=== PATIENT | male | born 1965 | race Caucasian/White ===

== ENCOUNTER 2018-02-25 10:46 | Emergency (ER) | payer OTHER ==
[~2018-02-25] VITALS: Ht 175.3 cm; Wt 109.1 kg
[~2018-02-25 10:46] MED LIST: ATOR10TA84 PO; BUPR-93 PO; CITA-106 PO; LISI-618 PO; METF1000 PO; OMEP20 PO; PIOG15TA6 PO; QUET400T PO; [UNRECOGNIZED DRUG - CODE] PO
[2018-02-25 11:54] LABS: ANION GAP 11 mmol/L (8-16); CARBON DIOXIDE 28 mmol/L (22-29); CHLORIDE 101 mmol/L (98-107); CREATININE 0.92 mg/dL (0.60-1.30); GLOMERULAR FILTR. RATE CALC > 60 mL/min (>60); GLUCOSE,RANDOM 122 mg/dL (70-110); POTASSIUM 4.1 mmol/L (3.5-5.1); SODIUM SERUM 140 mmol/L (136-145); UREA NITROGEN, BLOOD 12 mg/dL (7-18)
[2018-02-25 12:00] LABS: ALANINE AMINOTRANSFERASE 76 U/L (12-78); ALBUMIN 4.3 g/dL (3.4-5.0); ALKALINE PHOSPHATASE 86 U/L (46-116); ASPARTATE AMINOTRANSFERASE 39 U/L (15-37); BILIRUBIN,TOTAL 0.3 mg/dL (0.1-1.0); TOTAL PROTEIN, SERUM 8.2 g/dL (6.4-8.2)
[2018-02-25 12:10] LABS: LYMPHOCYTES # (AUTO) 1.9 K/uL (1.0-4.8); MONOCYTES # (AUTO) 0.4 K/uL (0.1-1.0); RED CELL DISTRIBUTION WIDTH 14.1 % (11.5-14.5)
[2018-02-25 12:24] LABS: BASOPHILS % (AUTO) 0.8 % (0.0-2.0); EOSINOPHILS % (AUTO) 1.1 % (1.0-6.0); HEMATOCRIT 47.4 % (41-53); HEMOGLOBIN 16.2 g/dL (13.5-17.5); LYMPHOCYTES % (AUTO) 27.3 % (22.0-44.0); MEAN CORPUSCULAR HEMOGLOBIN 29.8 pg (26.0-34.0); MEAN CORPUSCULAR HGB CONC 34.3 G/dL (31.0-37.0); MEAN CORPUSCULAR VOLUME 87 fL (80-100); NEUTROPHILS # (AUTO) 4.4 K/uL (1.8-7.7); NEUTROPHILS % (AUTO) 64.8 % (40.0-70.0); PLATELET COUNT (AUTO) 234 K/uL (150-450); RED BLOOD CELL COUNT(AUTO) 5.45 MIL/uL (4.50-5.90)
[2018-02-25 12:42] LABS: AMPHET/METH SCREEN,URINE NEGATIVE (NEGATIVE); BARBITURATE SCREEN, URINE NEGATIVE (NEGATIVE); BENZODIAZEPINES SCREEN,URINE NEGATIVE (NEGATIVE); CANNABINOID SCREEN,URINE POSITIVE (NEGATIVE); COCAINE SCREEN,URINE NEGATIVE (NEGATIVE); METHADONE SCREEN, URINE NEGATIVE (NEGATIVE); OPIATE SCREEN,URINE NEGATIVE (NEGATIVE)
[2018-02-25 12:45] LABS: PHENCYCLIDINE SCREEN,URINE NEGATIVE (NEGATIVE)
[2018-02-25] MEDS ORDERED: LORazepam 1 MG TABLET PO ONE (13:30)
[2018-02-25 14:00] VITALS: BP 142/92
== END 2018-02-25 14:36 | disposition home or self-care (01) ==
LOC: EMS 10:47
DX: F32.9 Major depressive disorder, single episode, unspecified (principal); F10.229 Alcohol dependence with intoxication, unspecified; K70.30 Alcoholic cirrhosis of liver without ascites; R07.89 Other chest pain; I10 Essential (primary) hypertension; E11.9 Type 2 diabetes mellitus without complications; K21.9 Gastro-esophageal reflux disease without esophagitis; F12.90 Cannabis use, unspecified, uncomplicated; F17.210 Nicotine dependence, cigarettes, uncomplicated; Z79.899 Other long term (current) drug therapy
CPT/HCPCS: 36415; 80053; 80307; 84484; 85025; 93005; 99285; 99406; G0480

== ENCOUNTER 2018-05-12 10:11 | Emergency (ER) | payer OTHER ==
[~2018-05-12] VITALS: Ht 172.7 cm; Wt 104.5 kg
[~2018-05-12 10:11] MED LIST changes: -BUPR-93 PO; -CITA-106 PO; -PIOG15TA6 PO; -QUET400T PO; -[UNRECOGNIZED DRUG - CODE] PO
[2018-05-12 10:44] LABS: GLUCOSE,POINT OF CARE 186 MG/DL (70-110)
[2018-05-12] MEDS ORDERED: LORazepam 2 MG TABLET PO ONE (11:30)
[2018-05-12 11:49] LABS: BASOPHILS % (AUTO) 0.6 % (0.0-2.0); EOSINOPHILS % (AUTO) 1.1 % (1.0-6.0); HEMATOCRIT 47.2 % (41-53); HEMOGLOBIN 16.2 g/dL (13.5-17.5); LYMPHOCYTES # (AUTO) 2.1 K/uL (1.0-4.8); LYMPHOCYTES % (AUTO) 29.2 % (22.0-44.0); MEAN CORPUSCULAR HGB CONC 34.3 G/dL (31.0-37.0); MEAN CORPUSCULAR VOLUME 88 fL (80-100); MONOCYTES # (AUTO) 0.4 K/uL (0.1-1.0); MONOCYTES % (AUTO) 5.4 % (2.0-9.0); NEUTROPHILS # (AUTO) 4.6 K/uL (1.8-7.7); NEUTROPHILS % (AUTO) 63.7 % (40.0-70.0); PLATELET COUNT (AUTO) 214 K/uL (150-450); RED BLOOD CELL COUNT(AUTO) 5.39 MIL/uL (4.50-5.90); RED CELL DISTRIBUTION WIDTH 13.3 % (11.5-14.5)
[2018-05-12 12:08] LABS: ANION GAP 16 mmol/L (8-16); CALCIUM, TOTAL 9.6 mg/dL (8.8-10.5); CARBON DIOXIDE 24 mmol/L (22-29); CHLORIDE 98 mmol/L (98-107); CREATININE 0.99 mg/dL (0.60-1.30); GLOMERULAR FILTR. RATE CALC > 60 mL/min (>60); GLUCOSE,RANDOM 135 mg/dL (70-110); SODIUM SERUM 138 mmol/L (136-145); UREA NITROGEN, BLOOD 10 mg/dL (7-18)
[2018-05-12 12:15] LABS: ALANINE AMINOTRANSFERASE 69 U/L (12-78); ALBUMIN 4.7 g/dL (3.4-5.0); ALKALINE PHOSPHATASE 87 U/L (46-116); ASPARTATE AMINOTRANSFERASE 46 U/L (15-37); BILIRUBIN,TOTAL 0.5 mg/dL (0.1-1.0); TOTAL PROTEIN, SERUM 8.4 g/dL (6.4-8.2)
[2018-05-12 12:22] LABS: AMPHET/METH SCREEN,URINE POSITIVE (NEGATIVE); BARBITURATE SCREEN, URINE NEGATIVE (NEGATIVE); BENZODIAZEPINES SCREEN,URINE NEGATIVE (NEGATIVE); CANNABINOID SCREEN,URINE POSITIVE (NEGATIVE); COCAINE SCREEN,URINE NEGATIVE (NEGATIVE); METHADONE SCREEN, URINE NEGATIVE (NEGATIVE); OPIATE SCREEN,URINE NEGATIVE (NEGATIVE); PHENCYCLIDINE SCREEN,URINE NEGATIVE (NEGATIVE)
[2018-05-12 12:59] LABS: GLUCOSE,POINT OF CARE 225 MG/DL (70-110)
[2018-05-12 16:13] LABS: GLUCOSE,POINT OF CARE 164 MG/DL (70-110)
[2018-05-12 17:49] LABS: GLUCOSE,POINT OF CARE 145 MG/DL (70-110)
[2018-05-12] MEDS ORDERED: CloNIDine HCL 0.2 MG TABLET PO ONE (18:00)
[2018-05-12 22:30] VITALS: BP 109/67
== END 2018-05-12 23:36 ==
LOC: EMS 10:22
DX: F32.9 Major depressive disorder, single episode, unspecified (principal); R45.851 Suicidal ideations; I10 Essential (primary) hypertension; E11.9 Type 2 diabetes mellitus without complications; K21.9 Gastro-esophageal reflux disease without esophagitis; F17.210 Nicotine dependence, cigarettes, uncomplicated; F12.90 Cannabis use, unspecified, uncomplicated; Z79.84 Long term (current) use of oral hypoglycemic drugs
CPT/HCPCS: 36415; 80053; 80307; 82962; 85025; 99285; G0480

== ENCOUNTER 2019-08-20 10:11 | Emergency (ER) | payer OTHER ==
[~2019-08-20] VITALS: Ht 182.9 cm; Wt 109.1 kg
[2019-08-20] MEDS ORDERED: HALOPERIDOL LACTATE 5 MG/ML VIAL IM ONE (10:45)
[2019-08-20] MEDS ORDERED: DiphenhydrAMINE HCL 50 MG/ML VIAL IM ONE (10:45)
[2019-08-20] MEDS ORDERED: LORazepam 2 MG/ML VIAL IM ONE (10:45)
[2019-08-20 11:18] LABS: AMPHET/METH SCREEN,URINE NEGATIVE (NEGATIVE); BARBITURATE SCREEN, URINE NEGATIVE (NEGATIVE); BENZODIAZEPINES SCREEN,URINE NEGATIVE (NEGATIVE); CANNABINOID SCREEN,URINE POSITIVE (NEGATIVE); COCAINE SCREEN,URINE NEGATIVE (NEGATIVE); METHADONE SCREEN, URINE NEGATIVE (NEGATIVE); OPIATE SCREEN,URINE NEGATIVE (NEGATIVE)
[2019-08-20 11:28] LABS: PHENCYCLIDINE SCREEN,URINE NEGATIVE (NEGATIVE)
[2019-08-20 11:40] LABS: BASOPHILS % (AUTO) 0.8 % (0.0-2.0); EOSINOPHILS % (AUTO) 3.9 % (1.0-6.0); HEMATOCRIT 45.5 % (41-53); HEMOGLOBIN 15.3 g/dL (13.5-17.5); LYMPHOCYTES # (AUTO) 1.7 K/uL (1.0-4.8); LYMPHOCYTES % (AUTO) 38.1 % (22.0-44.0); MEAN CORPUSCULAR HEMOGLOBIN 30.5 pg (26.0-34.0); MEAN CORPUSCULAR HGB CONC 33.5 G/dL (31.0-37.0); MEAN CORPUSCULAR VOLUME 91 fL (80-100); MONOCYTES # (AUTO) 0.3 K/uL (0.1-1.0); MONOCYTES % (AUTO) 7.3 % (2.0-9.0); NEUTROPHILS # (AUTO) 2.2 K/uL (1.8-7.7); NEUTROPHILS % (AUTO) 49.9 % (40.0-70.0); PLATELET COUNT (AUTO) 227 K/uL (150-450); RED CELL DISTRIBUTION WIDTH 14.3 % (11.5-14.5)
[2019-08-20 11:49] LABS: ANION GAP 10 mmol/L (8-16); CALCIUM, TOTAL 8.3 mg/dL (8.8-10.5); CARBON DIOXIDE 24 mmol/L (22-29); CHLORIDE 105 mmol/L (98-107); GLOMERULAR FILTR. RATE CALC > 60 mL/min (>60); GLUCOSE,RANDOM 153 mg/dL (70-110); POTASSIUM 3.8 mmol/L (3.5-5.1); SODIUM SERUM 139 mmol/L (136-145); UREA NITROGEN, BLOOD 7 mg/dL (7-18)
[2019-08-20 11:53] LABS: ALANINE AMINOTRANSFERASE 50 U/L (12-78); ALBUMIN 4.4 g/dL (3.4-5.0); ALKALINE PHOSPHATASE 77 U/L (46-116); ASPARTATE AMINOTRANSFERASE 32 U/L (15-37); BILIRUBIN,TOTAL 0.2 mg/dL (0.1-1.0); TOTAL PROTEIN, SERUM 7.9 g/dL (6.4-8.2)
[2019-08-20 11:56] LABS: ACETAMINOPHEN < 2 mcg/mL (10-30)
[2019-08-20 12:15] LABS: SALICYLATE 4.1 mg/dL (2.8-20.0)
[2019-08-20 16:09] VITALS: BP 119/64
== END 2019-08-20 16:07 | disposition short-term general hospital (02) ==
LOC: EMS 10:12
DX: F32.9 Major depressive disorder, single episode, unspecified (principal); Z11.59 Encounter for screening for other viral diseases; F10.129 Alcohol abuse with intoxication, unspecified; F17.210 Nicotine dependence, cigarettes, uncomplicated; Z79.84 Long term (current) use of oral hypoglycemic drugs; Z79.82 Long term (current) use of aspirin; Z79.899 Other long term (current) drug therapy; Y90.8 Blood alcohol level of 240 mg/100 ml or more
CPT/HCPCS: 36415; 80053; 80307; 85025; 87635; 93005; 96372; 99291; G0481; J1200; J1630; J2060; G0480

== ENCOUNTER 2021-03-22 04:22 | Emergency (ER) | payer OTHER ==
[~2021-03-22] VITALS: Ht 177.8 cm; Wt 107.7 kg
[~2021-03-22 04:22] MED LIST changes: -LISI-618 PO; +LISI20TA24 PO
[2021-03-22 05:16] LABS: BASOPHILS % (AUTO) 0.6 % (0.0-2.0); EOSINOPHILS % (AUTO) 2.6 % (1.0-6.0); HEMATOCRIT 46.1 % (41-53); HEMOGLOBIN 16.1 g/dL (13.5-17.5); LYMPHOCYTES # (AUTO) 1.1 K/uL (1.0-4.8); LYMPHOCYTES % (AUTO) 21.9 % (22.0-44.0); MEAN CORPUSCULAR HEMOGLOBIN 29.4 pg (26.0-34.0); MEAN CORPUSCULAR VOLUME 84 fL (80-100); MONOCYTES # (AUTO) 0.4 K/uL (0.1-1.0); MONOCYTES % (AUTO) 7.8 % (2.0-9.0); NEUTROPHILS # (AUTO) 3.4 K/uL (1.8-7.7); NEUTROPHILS % (AUTO) 67.1 % (40.0-70.0); PLATELET COUNT (AUTO) 202 K/uL (150-450); RED BLOOD CELL COUNT(AUTO) 5.47 MIL/uL (4.50-5.90); RED CELL DISTRIBUTION WIDTH 14.9 % (11.5-14.5)
[2021-03-22 05:20] LABS: ANION GAP 3 mmol/L (8-16); CARBON DIOXIDE 32 mmol/L (22-29); CHLORIDE 102 mmol/L (98-107); CREATININE 1.14 mg/dL (0.60-1.30); GLOMERULAR FILTR. RATE CALC > 60 mL/min (>60); GLUCOSE,RANDOM 202 mg/dL (70-110); POTASSIUM 4.8 mmol/L (3.5-5.1); SODIUM SERUM 137 mmol/L (136-145); UREA NITROGEN, BLOOD 23 mg/dL (7-18)
[2021-03-22 05:30] LABS: ALANINE AMINOTRANSFERASE 44 U/L (12-78); ALBUMIN 4.5 g/dL (3.4-5.0); ALKALINE PHOSPHATASE 82 U/L (46-116); ASPARTATE AMINOTRANSFERASE 17 U/L (15-37); BILIRUBIN,TOTAL 0.4 mg/dL (0.1-1.0); LIPASE 144 U/L (73-393); TOTAL PROTEIN, SERUM 8.2 g/dL (6.4-8.2)
[2021-03-22] MEDS ORDERED: TraMADol HCL 50 MG TABLET PO ONE (07:30)
[2021-03-22] MEDS ORDERED: LISINOPRIL 10 MG TABLET PO ONE (08:15)
[2021-03-22] MEDS ORDERED: FAMOTIDINE 20 MG TABLET PO ONE (08:15)
[2021-03-22] MEDS ORDERED: AmLODIPine BESYLATE 5 MG TABLET PO ONE (08:45)
[2021-03-22 09:20] VITALS: BP 180/100
== END 2021-03-22 09:27 | disposition home or self-care (01) ==
LOC: EMS 04:24
DX: K21.9 Gastro-esophageal reflux disease without esophagitis (principal); K76.0 Fatty (change of) liver, not elsewhere classified; I10 Essential (primary) hypertension; F32.9 Major depressive disorder, single episode, unspecified; E11.9 Type 2 diabetes mellitus without complications; F17.210 Nicotine dependence, cigarettes, uncomplicated; F12.90 Cannabis use, unspecified, uncomplicated; Z79.84 Long term (current) use of oral hypoglycemic drugs
CPT/HCPCS: 71045; 76700; 80053; 83690; 84484; 85025; 93005; 99285; 36415-L1; 36415-TC

== ENCOUNTER 2021-09-21 17:45 | Emergency (ER) | payer OTHER ==
[~2021-09-21] VITALS: Ht 177.8 cm; Wt 107.7 kg
[2021-09-21] MEDS ORDERED: NALT380S2 IM (18:21)
[2021-09-21] MEDS ORDERED: METF-446 PO (18:55)
[2021-09-21] MEDS ORDERED: NALT50TA PO (18:55)
[2021-09-21] MEDS ORDERED: SODIUM CHLORIDE 0.9% 1,000 ML IV ONE (19:00)
[2021-09-21] MEDS ORDERED: ONDANSETRON HCL 4 MG/2 ML VIAL IVP ONE (19:00)
[2021-09-21] MEDS ORDERED: KETOROLAC TROMETHAMINE 30 MG/ML VIAL IVP ONE (19:00)
[2021-09-21] MEDS ORDERED: LORazepam 2 MG/ML VIAL IVP ONE (19:00)
[2021-09-21 19:10] LABS: BASOPHILS % (AUTO) 0.4 % (0.0-2.0); EOSINOPHILS % (AUTO) 1.2 % (1.0-6.0); HEMATOCRIT 47.1 % (41-53); HEMOGLOBIN 15.9 g/dL (13.5-17.5); LYMPHOCYTES # (AUTO) 2.1 K/uL (1.0-4.8); LYMPHOCYTES % (AUTO) 27.6 % (22.0-44.0); MEAN CORPUSCULAR HEMOGLOBIN 28.6 pg (26.0-34.0); MEAN CORPUSCULAR HGB CONC 33.7 G/dL (31.0-37.0); MEAN CORPUSCULAR VOLUME 85 fL (80-100); MONOCYTES # (AUTO) 0.7 K/uL (0.1-1.0); MONOCYTES % (AUTO) 9.2 % (2.0-9.0); NEUTROPHILS # (AUTO) 4.7 K/uL (1.8-7.7); NEUTROPHILS % (AUTO) 61.6 % (40.0-70.0); PLATELET COUNT (AUTO) 219 K/uL (150-450); RED BLOOD CELL COUNT(AUTO) 5.54 MIL/uL (4.50-5.90); RED CELL DISTRIBUTION WIDTH 13.1 % (11.5-14.5)
[2021-09-21 19:20] LABS: CALCIUM, TOTAL 10.2 mg/dL (8.8-10.5); CREATININE 1.42 mg/dL (0.60-1.30)
[2021-09-21 19:26] LABS: ALBUMIN 4.6 g/dL (3.4-5.0); BILIRUBIN,TOTAL 0.6 mg/dL (0.1-1.0)
[2021-09-21 19:30] VITALS: BP 156/65
[2021-09-21 20:27] LABS: APPEARANCE,URINE CLEAR (CLEAR); BILIRUBIN,URINE NEGATIVE (NEGATIVE); GLUCOSE, URINE (UA) >=1000 mg/dL (NEGATIVE); LEUKOCYTE ESTERASE ,URINE NEGATIVE (NEGATIVE); NITRATE,URINE NEGATIVE (NEGATIVE); OCCULT BLOOD,URINE NEGATIVE (NEGATIVE); PH,URINE 5.5 (5.0-8.0); PROTEIN,URINE 30-70 mg/dL (NEGATIVE); SPECIFIC GRAVITIY, URINE 1.044 (1.003-1.030); UROBILINOGEN,URINE <=1.0 mg/dL (<=1.0)
[2021-09-21 20:39] LABS: BACTERIA,URINE None Seen /HPF (None Seen); RBC,URINE 0-2 /HPF (0-2); SQUAMOUS EPITHELIAL CELL,UR Rare /LPF (None Seen); WBC,URINE 0-2 /HPF (0-5)
== END 2021-09-21 21:50 | disposition home or self-care (01) ==
LOC: EMS 17:49
DX: R10.84 Generalized abdominal pain (principal); F41.9 Anxiety disorder, unspecified; E11.65 Type 2 diabetes mellitus with hyperglycemia; T50.7X5A Adverse effect of analeptics and opioid receptor antagonists, initial encounter; F10.20 Alcohol dependence, uncomplicated; F32.A Depression, unspecified; I10 Essential (primary) hypertension; M10.9 Gout, unspecified; F17.210 Nicotine dependence, cigarettes, uncomplicated; F12.90 Cannabis use, unspecified, uncomplicated; Z87.19 Personal history of other diseases of the digestive system; Y92.89 Other specified places as the place of occurrence of the external cause
CPT/HCPCS: 36415; 80053; 81001; 82962; 83690; 85025; 96361; 96374; 96375; 99284; J1885; J2060; J2405; J7030

== ENCOUNTER 2022-03-22 10:49 | Emergency (ER) | payer OTHER ==
[~2022-03-22] VITALS: Ht 177.8 cm; Wt 110.5 kg
[~2022-03-22 10:49] MED LIST changes: +ATOR10TA PO; -ATOR10TA84 PO; +METF-446 PO; -METF1000 PO; +NALT380S2 IM; +NALT50TA PO
[2022-03-22 12:59] LABS: BASOPHILS % (AUTO) 0.6 % (0.0-2.0); EOSINOPHILS % (AUTO) 0.5 % (1.0-6.0); HEMATOCRIT 45.6 % (41-53); HEMOGLOBIN 15.1 g/dL (13.5-17.5); LYMPHOCYTES # (AUTO) 1.4 K/uL (1.0-4.8); LYMPHOCYTES % (AUTO) 17.6 % (22.0-44.0); MEAN CORPUSCULAR HEMOGLOBIN 29.5 pg (26.0-34.0); MEAN CORPUSCULAR HGB CONC 33.2 G/dL (31.0-37.0); MEAN CORPUSCULAR VOLUME 89 fL (80-100); MONOCYTES # (AUTO) 0.5 K/uL (0.1-1.0); MONOCYTES % (AUTO) 6.4 % (2.0-9.0); NEUTROPHILS # (AUTO) 5.8 K/uL (1.8-7.7); NEUTROPHILS % (AUTO) 74.9 % (40.0-70.0); PLATELET COUNT (AUTO) 213 K/uL (150-450); RED BLOOD CELL COUNT(AUTO) 5.12 MIL/uL (4.50-5.90); RED CELL DISTRIBUTION WIDTH 12.7 % (11.5-14.5)
[2022-03-22 13:16] LABS: CALCIUM, TOTAL 9.7 mg/dL (8.8-10.5); POTASSIUM 5.2 mmol/L (3.5-5.1)
[2022-03-22 13:22] LABS: ALBUMIN 4.2 g/dL (3.4-5.0); BILIRUBIN,TOTAL 0.6 mg/dL (0.1-1.0); TOTAL PROTEIN, SERUM 7.8 g/dL (6.4-8.2)
[2022-03-22 14:45] VITALS: BP 136/81
== END 2022-03-22 15:18 | disposition home or self-care (01) ==
LOC: EMS 10:50
DX: R07.9 Chest pain, unspecified (principal); E11.65 Type 2 diabetes mellitus with hyperglycemia; N28.9 Disorder of kidney and ureter, unspecified; F10.20 Alcohol dependence, uncomplicated; F32.A Depression, unspecified; K21.9 Gastro-esophageal reflux disease without esophagitis; I10 Essential (primary) hypertension; K85.90 Acute pancreatitis without necrosis or infection, unspecified; F17.210 Nicotine dependence, cigarettes, uncomplicated; F12.90 Cannabis use, unspecified, uncomplicated
CPT/HCPCS: 71045; 80053; 83690; 83880; 84484; 85025; 93005; 99285; 36415-L1; 36415-TC

== ENCOUNTER 2024-02-12 16:08 | Emergency (ER) | payer MEDICAID, OTHER ==
[~2024-02-12] VITALS: Ht 180.3 cm; Wt 118.2 kg
[~2024-02-12 16:08] MED LIST changes: -NALT50TA PO; +NALT50TA6 PO
[2024-02-12] MEDS: ACETAMINOPHEN 500 MG TABLET PO ONE (17:05)
[2024-02-12] MEDS: IBUPROFEN 600 MG TABLET PO ONE (17:05)
[2024-02-12] MEDS: BACITRACIN 0.9 GM PACKET OINTMENT TP ONE (17:05)
[2024-02-12] MEDS: PERTUSS(ACELL),DIPH,TET/PF 0.5 ML SYRINGE [ADULT] IM. ONE (17:06)
[2024-02-12 17:10] LABS: COVID AG,FIA SOURCE NASAL SWAB
[2024-02-12 17:13] LABS: PH,URINE DRUG SCREEN 5.5 (5.0-8.0)
[2024-02-12 17:22] LABS: BASOPHILS % (AUTO) 0.5 % (0.0-2.0); EOSINOPHILS % (AUTO) 1.7 % (1.0-6.0); HEMATOCRIT 39.3 % (41-53); HEMOGLOBIN 12.9 g/dL (13.5-17.5); LYMPHOCYTES # (AUTO) 2.6 K/uL (1.0-4.8); LYMPHOCYTES % (AUTO) 32.8 % (22.0-44.0); MEAN CORPUSCULAR HEMOGLOBIN 27.8 pg (26.0-34.0); MEAN CORPUSCULAR HGB CONC 32.8 G/dL (31.0-37.0); MEAN CORPUSCULAR VOLUME 85 fL (80-100); MONOCYTES # (AUTO) 0.3 K/uL (0.1-1.0); MONOCYTES % (AUTO) 4.2 % (2.0-9.0); NEUTROPHILS # (AUTO) 4.9 K/uL (1.8-7.7); NEUTROPHILS % (AUTO) 60.8 % (40.0-70.0); PLATELET COUNT (AUTO) 189 K/uL (150-450); RED BLOOD CELL COUNT(AUTO) 4.64 MIL/uL (4.50-5.90); RED CELL DISTRIBUTION WIDTH 14.7 % (11.5-14.5); WHITE BLOOD COUNT (AUTO) 8.1 K/uL (4.5-11.0)
[2024-02-12 17:22] LABS: ALCOHOL, URINE DRUG SCREEN POSITIVE (NEGATIVE); AMPHET/METH SCREEN,URINE NEGATIVE (NEGATIVE); BARBITURATE SCREEN, URINE NEGATIVE (NEGATIVE); BENZODIAZEPINES SCREEN,URINE NEGATIVE (NEGATIVE); CANNABINOID SCREEN,URINE NEGATIVE (NEGATIVE); COCAINE SCREEN,URINE NEGATIVE (NEGATIVE); METHADONE SCREEN, URINE NEGATIVE (NEGATIVE); OPIATE SCREEN,URINE NEGATIVE (NEGATIVE); PHENCYCLIDINE SCREEN,URINE NEGATIVE (NEGATIVE)
[2024-02-12 17:44] LABS: SARS-COV2 (COVID) ANTIGEN,FIA Negative (Negative)
[2024-02-12 18:18] LABS: CALCIUM, TOTAL 8.6 mg/dL (8.8-10.5); CREATININE 1.34 mg/dL (0.60-1.30)
[2024-02-12] MEDS: INSULIN REGULAR, HUMAN 100 UNITS/ML SQ ONE (19:02)
[2024-02-12 19:10] VITALS: BP 133/75; PULSE 69; RESP 18; TEMP 98.1; O2SAT 96
[2024-02-12 19:55] LABS: GLUCOMETER DEV NAME(LOC) ERT.6; GLUCOSE,POINT OF CARE 360 MG/DL (70-110)
== END 2024-02-12 21:23 | disposition short-term general hospital (02) ==
LOC: EMS 16:08
DX: S00.83XA Contusion of other part of head, initial encounter (principal); R45.851 Suicidal ideations; F33.2 Major depressive disorder, recurrent severe without psychotic features; E11.65 Type 2 diabetes mellitus with hyperglycemia; E86.0 Dehydration; I10 Essential (primary) hypertension; K21.9 Gastro-esophageal reflux disease without esophagitis; F12.90 Cannabis use, unspecified, uncomplicated; Z79.899 Other long term (current) drug therapy; Z20.822 Contact with and (suspected) exposure to COVID-19; W22.8XXA Striking against or struck by other objects, initial encounter; Y93.89 Activity, other specified; Y92.89 Other specified places as the place of occurrence of the external cause; Y99.8 Other external cause status
CPT/HCPCS: 99285; 70450; 87426; 80048; 82962; 85025; 36415; 72125; 90715; 90471; 96372; 80307; G0480; J1815